=== PATIENT | female | born 1960 | race Caucasian/White ===

== ENCOUNTER 2016-12-05 09:56 | Outpatient (CLI) | payer OTHER ==
[2016-12-05 11:20] LABS: Cardiac Risk 4.7 (Less than 4.5)
== END 2016-12-05 09:57 | disposition home or self-care (01) ==
LOC: BURLAB 09:56
PROVIDERS: ATTEND Internal Medicine Cardiovascular Disease
DX: E78.5 Hyperlipidemia, unspecified (principal)
CPT/HCPCS: 36415; 80061

== ENCOUNTER 2023-09-30 19:01 | Emergency (ER) | payer OTHER ==
[2023-09-30] MEDS ORDERED: Ibuprofen 800 MG TAB ONE (19:42)
== END 2023-09-30 20:39 | disposition home or self-care (01) ==
LOC: BURERS 19:01
DX: S90.31XA Contusion of right foot, initial encounter (principal); X58.XXXA Exposure to other specified factors, initial encounter

== ENCOUNTER 2023-12-19 14:47 | Outpatient (CLI) | payer OTHER | END 2023-12-19 14:48 | disposition home or self-care (01) | LOC: BURRAD 14:47 | PROVIDERS: ATTEND Physician Assistant | DX: R20.2 Paresthesia of skin (principal); M47.812 Spondylosis without myelopathy or radiculopathy, cervical region | CPT/HCPCS: 72050 ==